=== PATIENT | male | born 1955 | race Caucasian/White ===

== ENCOUNTER 2017-02-22 14:20 | Emergency (ER) | payer SELFPAY ==
[2017-02-22 14:30] VITALS: BP 151/91; BMI 32.3
[2017-02-22] MEDS ORDERED: PHENERGAN INJ 25 MG IM ONE (14:31)
[2017-02-22] MEDS ORDERED: DEMEROL INJ IM ONE (14:31)
[2017-02-22] MEDS ORDERED: PHENERGAN INJ 25 MG ONE (14:36)
[2017-02-22] MEDS ORDERED: DEMEROL INJ ONE (14:36)
--- NOTE | 2017-02-22 15:25 | RAD ---
Right ankle, three views Indication: Ankle pain after twisting injury Comparison: 10/12/2014 Findings: There is posterior lateral dislocation of the talus with posteriorly displaced oblique frac ture of the distal fibula. Impression: Ankle fracture-dislocation. Reported By:
[2017-02-22] MEDS ORDERED: NS 1000 ML 1,000 ML ONE (15:28)
[2017-02-22] MEDS ORDERED: DIPRIVAN VIAL 20 ML ONE (16:03)
[2017-02-22] MEDS ORDERED: NS 1000 ML 1,000 ML IV ONE (16:26)
--- NOTE | 2017-02-22 16:37 | RAD ---
Right ankle, three views Indication: Postreduction Comparison: Radiograph from earlier today Findings: There has been interval splinting and reduction of the ankle fracture-dislocation. Tibiotal ar joint alignment is now near anatomic. There is mild persistent but improved lateral and posterior displacement of the distal fibular fracture as well as mild widening of the medial ankle gutter. No n ew osseous abnormality identified. Impression: Splinting and reduction of the ankle fracture-dislocation with overall improved alignment, as above. Reported By:
--- NOTE | 2017-02-22 16:44 | DR.ANKLE ---
HPI - Time seen Time seen: 14:40 - PCP Primary Care Physician: nfd - Complaint/Symptoms Chief Complaint Doctor Comments: Hiistory as stated. He admits to 02/02 is severity, quality sharp, modifying ambulation, contex moving. Chief Complaint:: patient steped in a hole and twisted his ankle and he heard a pop. patient right ankle is deformed. - Source History Provided: Patient - Mode of arrival Mode of Arrival: Wheelchair - Timing Onset of Chief Complaint: 02/22/17 PMH - PMH Past Medical History: Yes Past Medical History: Arthritis, Gout, Hypertension, PUD Past Surgical History: No - Family History History of Family Medical Conditions: Yes Family Medical History: Diabetes Mellitus, Cancer, AR, Coronary Artery Disease, Hypertension - Social History Does patient currently use any type of tobacco product: Yes Have you used tobacco products in the last 12 months: Yes Type of Tobacco Use: Cigarettes How many years tobacco product used: 45 Does any household member use tobacco: No Alcohol Use: Heavy Do you use any recreational Drugs:: No Lives With: Family Lives Where: Home - infectious screening In the last 2 months have you had wt loss of >10#?: NO Have you had fever, night sweats or hemotysis?: No Have you traveled outside the country in the last 6 months?: No Isolation: Standard ROS - Review of Systems Eyes: No Symptoms Reported ENTM: No Symptoms Reported Respiratoy: No Symptoms Reported Cardiovascular: No Symptoms Reported Gastrointestinal/Abdominal: No Symptoms Reported Genitourinary: No Symptoms Reported Neurological: No Symptoms Reported Musculoskeletal: Ankle (right ankle deformity) Integumentary: No Symptoms Reported Hematologic/Lymphatic: No Symptoms Reported Endocrine: No Symptoms Reported Psychiatric: No Symptoms Reported All Other Systems: Reviewed and Negative PE - Vitals Vital Signs: Temp Pulse Resp BP BP Pulse Ox 02/22/17 14:25 98.7 F 119 H 18 151/91 100 10/12/14 15:44 135/88 135/88 - General General Appearance: Alert, In No Apparent Distress - Head Head Exam: Normal Inspection, Atraumatic - Eyes Eye exam: Normal Appearance, PERRL, EOMI - ENT ENT Exam: Normal Exam - Neck Neck Exam: Normal Inspection, Full ROM - Chest Chest Inspection: Normal Inspection - Respiratory Respiratory Exam: Normal Lung Sounds Bilat Respiratory Exam: Bilateral Clear to Auscultation - Cardiovascular Cardiovascular Exam: Regular Rate - Abdominal Exam Abdominal Exam: Normal Inspection, Normal Bowel Sounds - Extremities Extremities Exam: Normal Inspection - Upper Extremities Shoulder Exam: Normal Inspection Arm Exam: Normal Inspection Elbow Exam: Normal Inspection Forearm Exam: Normal Inspection Hand Exam: Normal Inspection - Lower Extremities Hip/Pelvis Exam: Normal Inspection Upper Leg Exam: Normal Inspection Knee Exam: Normal Inspection Lower Leg Exam: Normal Inspection Ankle Exam: Deformity (right ankle deformed tender to palpatioon) Course - Treatment Treatment: General anesthesia prior to ankle reduction ROR - XRAY XRAY Interpreted by: Radiologist (ankle fracture/dislocation; repeat: Splinting and reduction of the ankle fracture dislocation with overall improved alignment. ) - Diagnosis Discharge Problem: Ankle fracture, right Qualifiers: Encounter type: initial encounter Fracture type: closed Qualified Code(s): S82.891A - Other fracture of right lower leg, initial encounter for closed fracture - Discharge Plan Condition: Stable - Follow ups/Referrals Follow ups/Referrals: [facility],None [Primary Care Provider] - 3 days - Instructions
== END 2017-02-22 17:21 | disposition home or self-care (01) ==
LOC: ER 14:20
PROC: 0SSF3ZZ Reposition Right Ankle Joint, Percutaneous Approach (ICD-10-PCS; principal; 2017-02-22)
PROC: 2W3LX1Z Immobilization of Right Lower Extremity using Splint (ICD-10-PCS; principal; 2017-02-22)
DX: S82.891A Other fracture of right lower leg, initial encounter for closed fracture (principal); Y33.XXXA Other specified events, undetermined intent, initial encounter; Y92.9 Unspecified place or not applicable
CPT/HCPCS: 27842; 29515; 73610; 96365; 96372; 96375; 99283; A4222; J2175; J2550; J3490

== ENCOUNTER → 2017-03-11 | Outpatient (CLI) | payer SELFPAY ==
[2017-02-22 14:30] VITALS: BP 151/91
[2017-03-11 13:44] LABS: BASOPHILS # (AUTO) 0.1 X10^3/uL (0.0-0.1); BASOPHILS % (AUTO) 0.9 % (0.2-1.0); EOSINOPHILS # (AUTO) 0.5 x10^3/uL (0.0-0.2); EOSINOPHILS % (AUTO) 4.2 % (0.9-2.9); HEMATOCRIT 43.5 % (42.0-54.0); HEMOGLOBIN 15.2 g/dL (13.5-18.0); LYMPHOCYTES # (AUTO) 1.6 X10^3/uL (1.3-2.9); LYMPHOCYTES % (AUTO) 13.3 % (21.0-51.0); MEAN CORPUSCULAR HEMOGLOBIN 35.6 pg (27.0-34.0); MEAN CORPUSCULAR HGB CONC 34.9 g/dL (33.0-35.0); MEAN CORPUSCULAR VOLUME 101.8 fL (80.0-100.0); MEAN PLATELET VOLUME 8.5 fL (7.4-11.0); MONOCYTES # (AUTO) 0.7 x10^3/uL (0.3-0.8); MONOCYTES % (AUTO) 5.8 % (0.0-13.0); NEUTROPHILS % (AUTO) 75.8 % (42.0-75.0); PLATELET COUNT 428 X10^3/uL (150.0-450.0); RED BLOOD COUNT 4.28 X10^6/uL (4.7-6.0); RED CELL DISTRIBUTION WIDTH 15.6 % (11.6-16.5); WHITE BLOOD COUNT 11.9 X10^3/uL (3.6-10.0)
[2017-03-11 13:48] LABS: BILIRUBIN,URINE 1+ (NEGATIVE); BLOOD/HEMOGLOBIN,URINE 1+ (NEGATIVE); GLUCOSE, URINE NEGATIVE (NEGATIVE); KETONES,URINE NEGATIVE (NEGATIVE); LEUKOCYTE ESTERASE ,URINE 1+ (NEGATIVE); NITRITES,URINE NEGATIVE (NEGATIVE); PROTEIN,URINE 2+ (NEGATIVE); UROBILINOGEN,URINE 2+ (NORMAL)
[2017-03-11 13:57] LABS: ALANINE AMINOTRANSFERASE 22 Units/L (12-78); ALBUMIN 3.5 g/dL (3.4-5.0); ALKALINE PHOSPHATASE 88 Units/L (46-116); ASPARTATE AMINO TRANSFERASE 25 Units/L (15-37); BLOOD UREA NITROGEN 9 mg/dL (7-18); CALCIUM 10.1 mg/dL (8.5-10.1); CARBON DIOXIDE 31.2 mmol/L (21-32); CHLORIDE 100 mmol/L (98-107); SODIUM 139 mmol/L (136-145); TOTAL PROTEIN 8.3 g/dL (6.4-8.2); eGFR BLACK RACES > 60 (>60); eGFR NON BLACK RACES > 60 (>60)
[2017-03-11 14:00] LABS: APPEARANCE,URINE CLEAR (CLEAR); BACTERIA,URINE TRACE /HPF (NEGATIVE); COLOR,URINE YELLOW (YELLOW); HYALINE CASTS, URINE MODERATE /LPF (NEGATIVE); MUCUS,URINE NUMEROUS /HPF (NEGATIVE); RBC,URINE RARE /HPF (NEGATIVE); SQUAMOUS EPITHELIAL CELL,UR FEW /HPF (NEGATIVE)
--- NOTE | 2017-03-11 14:03 | RAD ---
Examination: Chest, PA and lateral views History: Preop Comparison reference: None Findings: Normal heart size, tortuous aorta, clear lungs and pleural spaces. Slight widening of the s uperior mediastinum is probably related to brachiocephalic vessel ectasia. There is no evidence for C HF or pleural effusion. Impression: No acute or significant abnormality demonstrated. Reported By:
[2017-03-11 14:26] LABS: ERYTHROCYTE SEDIMENTATION RATE 67 MM/HOUR (0-15)
== END ==
LOC: LAB 13:08
PROVIDERS: ATTEND Orthopaedic Surgery
DX: Z01.818 Encounter for other preprocedural examination (principal); Z01.810 Encounter for preprocedural cardiovascular examination; Z01.811 Encounter for preprocedural respiratory examination; Z79.899 Other long term (current) drug therapy; Z79.01 Long term (current) use of anticoagulants; Z11.8 Encounter for screening for other infectious and parasitic diseases; S82.61XA Displaced fracture of lateral malleolus of right fibula, initial encounter for closed fracture; X58.XXXA Exposure to other specified factors, initial encounter
CPT/HCPCS: 36415; 71020; 80053; 81001; 85025; 85610; 85652; 85730; 86140; 87640; 87641; 93005; 93010

== ENCOUNTER → 2017-03-17 | Day surgery (SDC) | payer SELFPAY ==
[~2017-03-17] MED LIST: BACTROBAN OINT ONE; BENADRYL INJ 50 MG VIAL IVP PRN; D5 LR 1000 ML 1,000 ML IV ONE; DILAUDID INJ IVP PRN; DILAUDID INJ ONE; DIPRIVAN VIAL ONE; FENTANYL INJ 100 mcg ONE; LR 1000 ML IV 1,000 ML IV ONE; LTA KIT LIDOCAINE 4% ONE; NAROPIN 0.75% EPI ONE; NORMODYNE INJ 100 MG VIAL ONE; NS IRRIGATION 1000 ML 1,000 ML with BACITRACIN VIAL 50,000 UNT IR ONE; PERCOCET TAB 5/325 MG PO PRN; PHENERGAN INJ 25 MG IVP PRN; QUELICIN (OR ANECTINE) ONE; REGLAN INJ 10 MG VIAL IVP PRN; SUPRANE IN ONE; VERSED ONE; XYLOCAINE 2 % (PLAIN) ONE; ZOFRAN INJ 4 MG VIAL IVP PRN; ZOFRAN INJ 4 MG VIAL ONE
[2017-03-17] MEDS: ANCEF VIAL 1 GM ONE ×2 (08:13→08:35)
[2017-03-17 12:32] VITALS: BP 128/83
--- NOTE | 2017-03-21 10:23 | OR.GENERIC ---
Post-Op Note Generic - Post-Op Note Operative Report: Pre operarive diagnosis- Right ankle distal fibula fracture with syndesmotic injury, 4 weeks old Post- operative diagnosis- Right ankle distal fibula fracture with syndesmotic injury, 4 weeks old Procedure- ORIF Distal fibula with syndesmotic repair Indication- patient had a ankle injury a month ago. he was seen in my office and treatment options were discussed iwth him. he wanted to proceed with operative management. He did not have any insurance and did not qualify for the [employer] and medicare. His aunt did make arrangements and was able to get him ready for the surgery after a month. He was taken through the procedure in detail.Pre op and post op course was explained in detail . Complications including non union, malunion, implant ailure, skin healing issues, ankle arthritis, ankle stiffness were few of the complications were discussed with them. they understood and verbalized the same. Procedure- Patient was seen in the pre op holding area. Limb was marked. patient got appropriate antibitocs. He got regional block. patient was brought to the operating room. Patient positioned supine with feet at the end of the bed , bump under hip to get limb into neutral rotation .thigh tourniquet applied but not inflated. Elevated the distal limb with bump to minimize overlap from other ankle during lateral radiograph. Tourniquet inflated. The incision performed, a straight longitudinal incision 4-6cm in length centered on fracture and created full thickness flaps over distal fibula. Ensured that there was hemostatsis with cautery.Dissection done through subcutaneous tissue proximally, use tenotomy scissors to spread subcutaneous tissue in vertical direction with minimal soft tissue stripping. Hohmann retractors applied for retraction. Fracture site exposed. Callus seen. Fracture is 4 weeks old. Fracture ends not clean as not a fresh fracture. Callus debrided with rounger. Medullary canal opened. used reduction tenaculums to reduce fracture using hand rotation and contralateral thumb to help guide fragments together. I used a pointed clamp for reduction after fibula brought to length. A bovie was used to jigna out perpendicular line to fracture. I placed 3.5mm drill bit with sleeve on superior ridge of fibula in same perpendicular line and drilled first cortex only with 3.5mm drill. I inserted 2.5mm sleeve and drilled far cortex with 2.5mm bit.I counter-sunked first cortex and used depth gauge to measure length. I inserted lag screw and hand tighten carefully to not break bone, noted compression at the fracture site. I determined the required length of plate using and checking placement on C-arm.I contoured distal aspect of plate by using handheld plate benders. I inserted proximal screws 3.5 mm non locking and 3.5 mm distal locking screws. I confirmed Plate & Screw Position and found satisfactory. I checked with C-arm on mortise and lateral views, medial side widening was still seen. So closed reduction of the syndesmosis was done and held in place with pointed reduction clamps. 2 trans syndesmotic screws placed. Reduction confirmed in the AP , mortise and lateral views. I irrigateD wounds thoroughly and deflate tourniquet. Hemostasis maintained. Deep closure was done with 0-vicryl to close deep fascia over plate. Superficial closure was done with 2-0 vicryl for subcutaneous tissue and 3-0 nylon for skin with horizontal mattress stitches. Sterile Dressing was done and immediate immobilization with splint done with extra padding under heel. Patient was woken up from the surgery. he was shifted to PACU in stable condition. Post op x rays very satisfactory. crutches provided. Medications prescibption provided. Follow up as advised.
== END | disposition home or self-care (01) ==
LOC: SURG1 07:23
PROVIDERS: ATTEND Orthopaedic Surgery
PROC: 0QSJ34Z Reposition Right Fibula with Internal Fixation Device, Percutaneous Approach (ICD-10-PCS; 2017-03-17)
PROC: 0QSJ04Z Reposition Right Fibula with Internal Fixation Device, Open Approach (ICD-10-PCS; principal; 2017-03-17 08:30)
DX: S82.61XA Displaced fracture of lateral malleolus of right fibula, initial encounter for closed fracture (principal); X58.XXXA Exposure to other specified factors, initial encounter; M24.871 Other specific joint derangements of right ankle, not elsewhere classified
CPT/HCPCS: 64445; 76000; J0330; J0690; J1170; J2001; J2250; J2405; J3010; J3490; J7120

== ENCOUNTER → 2017-03-29 | Outpatient (CLI) | payer SELFPAY ==
[2017-03-17 12:32] VITALS: BP 128/83
--- NOTE | 2017-03-29 09:43 | RAD ---
Examination: Right ankle, three views History: Follow-up postop Comparison reference 02/22/2017 Findings: There is now noted a surgical screw-plate fixation device applied to the lateral surface of the distal fibular fracture, with additional transverse surgical screws into the tibia, across the d istal syndesmosis. The major fibular fragments are in good position and alignment. There is persisten t widening and asymmetry of the ankle joint. Impression: Interval ORIF of distal right fibular fracture. Persistent deformity of the tibiotalar magnus int consistent with associated ligamentous injury. Reported By:
== END ==
LOC: RAD 08:24
PROVIDERS: ATTEND Orthopaedic Surgery
DX: S82.61XA Displaced fracture of lateral malleolus of right fibula, initial encounter for closed fracture (principal); X58.XXXA Exposure to other specified factors, initial encounter
CPT/HCPCS: 73610

== ENCOUNTER → 2017-04-23 | Outpatient (CLI) | payer SELFPAY ==
[2017-03-17 12:32] VITALS: BP 128/83
--- NOTE | 2017-04-23 14:23 | RAD ---
Examination: Right ankle, three views History: Follow-up fracture with pain Comparison reference 03/29/2017 Findings: There is no change in position of fixation hardware in tibia or fibula. The fibular fractur e is partly obscured; on lateral view at the fracture is again noted with 3.0 mm of widening and jenelle le or no callus. There is no evidence for infection, hardware failure or interval injury. The previou sly described asymmetry of the mortise joint is less apparent. Impression: Stable appearance of ORIF fibular fracture. No new abnormality. Persistent but improved mortise joint asymmetry. Reported By:
== END ==
LOC: RAD 13:55
PROVIDERS: ATTEND Orthopaedic Surgery
DX: S82.62XD Displaced fracture of lateral malleolus of left fibula, subsequent encounter for closed fracture with routine healing (principal); X58.XXXD Exposure to other specified factors, subsequent encounter
CPT/HCPCS: 73610

== ENCOUNTER → 2017-06-07 | Outpatient (CLI) | payer SELFPAY ==
[2017-03-17 12:32] VITALS: BP 128/83
--- NOTE | 2017-06-07 10:27 | RAD ---
Examination: Right ankle, three views History: Follow-up fracture Comparison 04/23/2017 Findings: There is no significant change in appearance of the ankle. Appearance of the fixation hardw are is similar. The internally fixed fibular fracture remains at least partially ununited. There is s light residual separation of fracture fragments. No evidence for developing infection or re-injury. Impression: No change in appearance of the ORIF since 04/23/2017. Reported By:
== END | disposition home or self-care (01) ==
LOC: RAD 09:55
PROVIDERS: ATTEND Orthopaedic Surgery
DX: S82.61XG Displaced fracture of lateral malleolus of right fibula, subsequent encounter for closed fracture with delayed healing (principal); X58.XXXD Exposure to other specified factors, subsequent encounter
CPT/HCPCS: 73610